=== PATIENT | male | born 1955 | race Caucasian/White ===

== ENCOUNTER → 2023-04-13 12:30 | Outpatient (BNVA) | payer OTHER, SELFPAY | PROVIDERS: Visit Provider Physician Assistant | DX: S29.012A Strain of muscle and tendon of back wall of thorax, initial encounter (principal); S46.911A Strain of unspecified muscle, fascia and tendon at shoulder and upper arm level, right arm, initial encounter; X50.1XXA Overexertion from prolonged static or awkward postures, initial encounter | CPT/HCPCS: 99203 ==

== ENCOUNTER → 2023-04-27 08:55 | Outpatient (BNVA) | payer OTHER, SELFPAY | PROVIDERS: Visit Provider Physician Assistant | DX: M50.10 Cervical disc disorder with radiculopathy, unspecified cervical region (principal) | CPT/HCPCS: 72050; 99214 ==

== ENCOUNTER → 2023-05-11 14:28 | Outpatient (BNVA) | payer OTHER, SELFPAY | PROVIDERS: Visit Provider Physician Assistant | DX: M54.12 Radiculopathy, cervical region (principal) | CPT/HCPCS: 99213 ==

== ENCOUNTER 2023-05-24 15:03 | Outpatient (REF) | payer OTHER, SELFPAY ==
--- NOTE | ~2023-05-24 | MR_ITS ---
EXAMINATION: MR CERVICAL SPINE WITHOUT CONTRAST CLINICAL INFORMATION: Cervical discopathy. Right upper extremity radicular symptoms. COMPARISON: None available. TECHNIQUE: MRI of the cervical spine was performed using routine sequences without contrast. FINDINGS: The cervical vertebral bodies maintain normal heights and alignment. There is disc height loss at C5-C6 and C6-C7 with degenerative endplate changes. Edema is seen at the opposing endplates of C6-C7. There is multilevel deformation of the ventral and dorsal cord but no definite cord edema is seen. There is a 9 mm nodule in the right lobe of the thyroid gland for which no additional imaging is recommended. The imaged intracranial contents and cervical soft tissues are otherwise unremarkable. SPINAL LEVELS: C2-C3: Disc osteophyte complex. No spinal canal stenosis. Mild left neural foraminal stenosis. C3-C4: Disc osteophyte complex with ligamentum flavum infolding resulting in severe spinal canal stenosis with cord deformity and severe right neural foraminal stenosis. C4-C5: Disc osteophyte complex with ligamentum flavum infolding resulting in severe spinal canal stenosis with cord deformity. Uncovertebral hypertrophy with mild facet arthropathy resulting in moderate to severe bilateral neural foraminal stenosis. C5-C6: Disc osteophyte complex with uncovertebral hypertrophy resulting in moderate spinal canal stenosis with ventral cord deformity. No significant neural foraminal stenosis. C6-C7: Disc osteophyte complex with ligamentum flavum infolding resulting in severe spinal canal stenosis with cord deformity. Uncovertebral hypertrophy contributes to moderate to severe bilateral neural foraminal stenosis and C7-T1: Mild disc osteophyte complex without significant narrowing the spinal canal. Moderate right neural foraminal stenosis related to uncovertebral hypertrophy. MR/MR cervical spine wo con IMPRESSION: Multilevel degenerative spondylotic changes. Severe spinal canal stenosis with cord deformity is seen at C3-C4, C4-C5, and C6-C7. Moderate spinal canal stenosis is seen at C5-C6. Multilevel high-grade neural foraminal stenosis is noted including on the right at C3-C4, bilaterally at C4-C5, and bilaterally at C6-C7.
== END 2023-05-24 15:04 | disposition home or self-care (01) ==
LOC: HO.MRI 15:03
PROVIDERS: Visit Provider Physician Assistant Medical
DX: M48.02 Spinal stenosis, cervical region (principal)
CPT/HCPCS: 72141

== ENCOUNTER → 2023-06-02 15:37 | Outpatient (BNVA) | payer OTHER, SELFPAY | PROVIDERS: Visit Provider Physician Assistant | DX: M50.10 Cervical disc disorder with radiculopathy, unspecified cervical region (principal) | CPT/HCPCS: 99214 ==